=== PATIENT | female | born 1990 | race African-American/Black ===

== ENCOUNTER 2016-12-25 23:49 | Emergency (ER) | payer OTHER ==
--- NOTE | 2016-12-26 02:11 | EDDOCDS ---
Physician Documentation [facility] Name: Sp Liu Age: 26 yrs Sex: Female : 1990 Arrival Date: 12/25/2016 Time: 23:49 Bed Triage 3 Private MD: Tra BAIRES Disposition: 12/26/16 01:51 Discharged to Home/Self Care. Impression: Otalgia, left ear. - Condition is Stable. - Discharge Instructions: Earache. - Prescriptions for Ibuprofen 600 mg Oral Tablet - take 1 tablet by ORAL route every 6 hours As needed take with food; 30 tablet. - Medication Reconciliation, Local Pharmacy Hours form. - Follow up: Jeffrey Giron; When: Call to arrange an appointment; Reason: Further diagnostic work-up, Recheck today's complaints. Follow up: Tra Fitzgerald [facility]; When: Call to arrange an appointment; Reason: to obtain referral. - Problem is an ongoing problem. - Symptoms are unchanged. Historical: - Allergies: no known allergies; - Home Meds: 1. Flonase 50 mcg/actuation Nasal spsn 1 spray once daily 2. naproxen 250 mg Oral tab 1 tab every 6 hours - PMHx: none; - PSHx: bunionectomy; - Social history: Smoking status: Patient states was never smoker of tobacco. No barriers to communication noted, The patient speaks fluent Jamaican, Speaks appropriately for age. - Family history: Not pertinent. - : The pt / caregiver states he / she is not on anticoagulants. Home medication list is obtained from the patient. - Exposure Risk Screening:: None identified. 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 2 in. (157.48 cm) (R); Pain 6/10; 12/26 02:08 BP 122 / 74; Pulse 82; Resp 16; Temp 97.2; Pulse Ox 99% on R/A; Pain 0/10; [facility] 12/25 23:51 Body Mass Index 23.23 (57.61 kg, 157.48 cm) gr2 MDM: 01:46 Financial registration complete. gjb 02:08 [facility] Payment Agreement was scanned into [employer] and attached to record. tommy Signatures: Osei Roper PA-C PA-C ar2 Strong, Shannon RN RN sls1 Cristina Carvalho The chart was reviewed and I authenticate all verbal orders and agree with the evaluation and treatment provided.Attachments: 02:08 [facility] Payment Agreement gjb MTDD
--- NOTE | 2016-12-26 02:11 | EDDOCDS ---
Nurse's Notes [facility] Name: Sp Liu Age: 26 yrs Sex: Female : 1990 Arrival Date: 12/25/2016 Time: 23:49 Bed Triage 3 Private MD: UTTra ROY Diagnosis: Otalgia, left ear Presentation: 12/26 00:07 Presenting complaint: Patient states: left ear pain for 6 months, states has been seen [facility] multiple times and given nasal spray and naproxen with no relief. Adult Sepsis Screening: The patient does not have new or worsening altered mentation. Patient's respiratory rate is less than 22. Systolic blood pressure is greater than 100. Patient has a qSOFA score of 0- Negative Sepsis Screen. Suicide/Homicide risk assessment- the patient denies having any suicidal and/or homicidal ideations and does not present with any other emotional, behavioral or mental health complaints. 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 Transition of care: patient was not received from another setting of care. 00:07 Acuity: FAYE Level 5 [facility] 00:07 Method Of Arrival: Walkin/Carried/Asstd [facility] Triage Assessment: 00:09 General: Appears in no apparent distress, Behavior is appropriate for age, cooperative. sls1 Pain: Location: left ear Pain currently is 10 out of 10 on a pain scale. Pt Declines HIV testing. Neurological: No deficits noted. EENT: Reports pain in left ear. Derm: No deficits noted. 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 Flonase 50 mcg/actuation Nasal spsn 1 spray once daily 2. naproxen 250 mg Oral tab 1 tab every 6 hours - PMHx: none; - PSHx: bunionectomy; - Social history: Smoking status: Patient states was never smoker of tobacco. No barriers to communication noted, The patient speaks fluent Armenian, Speaks appropriately for age. - Family history: Not pertinent. - : The pt / caregiver states he / she is not on anticoagulants. Home medication list is obtained from the patient. - Exposure Risk Screening:: None identified. Screenin:08 Screening information is obtained from the patient. Fall risk: No risks identified. [facility] Assistance ADL's: requires no assistance with activities of daily living. Abuse/DV Screen: The patient / caregiver reports he/she is: not in a situation that causes fear, pain or injury. Nutritional screening: No deficits noted. Advance Directives: Further advance directive information is declined. home support is adequate. Assessment: 02:08 General: Appears in no apparent distress, Behavior is appropriate for age, cooperative, sls1 Discharge instructions reviewed with pt including medication use and follow up care, verbalizes understanding of all instructions. Pain: Denies pain. Neurological: Level of Consciousness is awake, alert. Respiratory: No deficits noted. Derm: No deficits noted. Vital Signs: 12/25 23:51 BP 143 / 80; Pulse 87; Resp 18 S; Temp 98.3(O); Pulse Ox 100% on R/A; Weight 57.61 kg gr2 (R); Height 5 ft. 2 in. (157.48 cm) (R); Pain 6/10; 12/26 02:08 BP 122 / 74; Pulse 82; Resp 16; Temp 97.2; Pulse Ox 99% on R/A; Pain 0/10; sls1 12/25 23:51 Body Mass Index 23.23 (57.61 kg, 157.48 cm) gr2 Vitals: 12/25 23:51 Log In Time: December 25, 2016 at 23:51. gr2 ED Course: 23:50 Patient visited by Gamal White. gr2 23:50 Patient moved to Waiting gr2 23:51 [facility], [place] is Private Physician. gr2 23:52 Patient visited by Gamal White. gr2 23:53 Patient moved to Pre RCE gr2 12/26 00:08 Triage Initiated sls1 00:10 Patient moved to MTA Wait sls1 00:55 Patient moved to Waiting alok 01:17 Patient moved to Triage 3 sls1 01:44 [facility]oper [facility]C [facility]. ar2 01:44 Ilir Marshall DO is Attending Physician. ar2 01:44 Patient visited by Osei Roper PA-C. ar2 01:50 Jeffrey Giron is Referral Physician. ar2 01:51 Tra Fitzgerald [facility] is Referral Physician. ar2 02:08 [facility] Payment Agreement was scanned into [employer] and attached to record. gjb 02:08 The patient / caregiver is instructed regarding the plan of care and ED course. Patient sls1 has correct armband on for positive identification. Placed in gown. 02:08 No IV's were initiated during this patient's visit. No procedures done that require sls1 assistance. Order Results: There are currently no results for this order. Outcome: 01:51 Discharge ordered by Provider. ar2 02:08 Discharge Assessment: Patient awake, alert and oriented x 3. No cognitive and/or sls1 functional deficits noted. Patient verbalized understanding of disposition instructions. patient administered narcotics - no. The following High Risk Discharge criteria are identified: None. Discharged to home ambulatory. Condition: stable. Discharge instructions given to patient, Instructed on discharge instructions, follow up and referral plans. medication usage, Demonstrated understanding of instructions, medications, Pt was receptive of discharge instructions/ teaching. No special radiology studies were completed. Property sent home with patient. 02:10 Patient left the ED. [facility] Signatures: Jennie Pichardo RN RN Osei Spear, PA-C PA-C ar2 Shraddha Cheng RN RN sls1 Gamal White 2 Cristina Carvalhob MODE
--- NOTE | 2016-12-28 03:11 | EDDOCDS ---
Nurse's Notes [facility] Name: pS Liu Age: 26 yrs Sex: Female : 1990 Arrival Date: 12/25/2016 Time: 23:49 Bed Triage 3 Private MD: DETra ROY Diagnosis: Otalgia, left ear Presentation: 12/26 00:07 Presenting complaint: Patient states: left ear pain for 6 months, states has been seen [facility] multiple times and given nasal spray and naproxen with no relief. Adult Sepsis Screening: The patient does not have new or worsening altered mentation. Patient's respiratory rate is less than 22. Systolic blood pressure is greater than 100. Patient has a qSOFA score of 0- Negative Sepsis Screen. Suicide/Homicide risk assessment- the patient denies having any suicidal and/or homicidal ideations and does not present with any other emotional, behavioral or mental health complaints. 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 Transition of care: patient was not received from another setting of care. 00:07 Acuity: FAYE Level 5 [facility] 00:07 Method Of Arrival: Walkin/Carried/Asstd [facility] Triage Assessment: 00:09 General: Appears in no apparent distress, Behavior is appropriate for age, cooperative. sls1 Pain: Location: left ear Pain currently is 10 out of 10 on a pain scale. Pt Declines HIV testing. Neurological: No deficits noted. EENT: Reports pain in left ear. Derm: No deficits noted. 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 Flonase 50 mcg/actuation Nasal spsn 1 spray once daily 2. naproxen 250 mg Oral tab 1 tab every 6 hours - PMHx: none; - PSHx: bunionectomy; - Social history: Smoking status: Patient states was never smoker of tobacco. No barriers to communication noted, The patient speaks fluent Urdu, Speaks appropriately for age. - Family history: Not pertinent. - : The pt / caregiver states he / she is not on anticoagulants. Home medication list is obtained from the patient. - Exposure Risk Screening:: None identified. Screenin:08 Screening information is obtained from the patient. Fall risk: No risks identified. [facility] Assistance ADL's: requires no assistance with activities of daily living. Abuse/DV Screen: The patient / caregiver reports he/she is: not in a situation that causes fear, pain or injury. Nutritional screening: No deficits noted. Advance Directives: Further advance directive information is declined. home support is adequate. Assessment: 02:08 General: Appears in no apparent distress, Behavior is appropriate for age, cooperative, sls1 Discharge instructions reviewed with pt including medication use and follow up care, verbalizes understanding of all instructions. Pain: Denies pain. Neurological: Level of Consciousness is awake, alert. Respiratory: No deficits noted. Derm: No deficits noted. Vital Signs: 12/25 23:51 BP 143 / 80; Pulse 87; Resp 18 S; Temp 98.3(O); Pulse Ox 100% on R/A; Weight 57.61 kg gr2 (R); Height 5 ft. 2 in. (157.48 cm) (R); Pain 6/10; 12/26 02:08 BP 122 / 74; Pulse 82; Resp 16; Temp 97.2; Pulse Ox 99% on R/A; Pain 0/10; sls1 12/25 23:51 Body Mass Index 23.23 (57.61 kg, 157.48 cm) gr2 Vitals: 12/25 23:51 Log In Time: December 25, 2016 at 23:51. gr2 ED Course: 23:50 Patient visited by Gamal White. gr2 23:50 Patient moved to Waiting gr2 23:51 [facility], [place] is Private Physician. gr2 23:52 Patient visited by Gamal White. gr2 23:53 Patient moved to Pre RCE gr2 12/26 00:08 Triage Initiated sls1 00:10 Patient moved to MTA Wait sls1 00:55 Patient moved to Waiting alok 01:17 Patient moved to Triage 3 sls1 01:44 [facility]. ar2 01:44 Ilir Marshall DO is Attending Physician. ar2 01:44 Patient visited by Osei Roper PA-C. ar2 01:50 Jeffrey Giron is Referral Physician. ar2 01:51 Tra Fitzgerald [facility] is Referral Physician. ar2 02:08 [facility] Payment Agreement was scanned into [employer] and attached to record. gjb 02:08 The patient / caregiver is instructed regarding the plan of care and ED course. Patient sls1 has correct armband on for positive identification. Placed in gown. 02:08 No IV's were initiated during this patient's visit. No procedures done that require sls1 assistance. 12:25 T-Sheet-- Draft Copy was scanned into [employer] and attached to record. gb Order Results: There are currently no results for this order. Outcome: 01:51 Discharge ordered by Provider. ar2 02:08 Discharge Assessment: Patient awake, alert and oriented x 3. No cognitive and/or sls1 functional deficits noted. Patient verbalized understanding of disposition instructions. patient administered narcotics - no. The following High Risk Discharge criteria are identified: None. Discharged to home ambulatory. Condition: stable. Discharge instructions given to patient, Instructed on discharge instructions, follow up and referral plans. medication usage, Demonstrated understanding of instructions, medications, Pt was receptive of discharge instructions/ teaching. No special radiology studies were completed. Property sent home with patient. 02:10 Patient left the ED. [facility] Signatures: Jennie Pichardo, RN RN Tanisha Hernandes, Reg Reg Osei Guallpa, PA-C PA-C ar2 Shraddha Cheng RN RN sls1 Gamal White gr2 Cristina Carvalho [facility] Chart Complete [facility]
--- NOTE | 2016-12-28 03:11 | EDDOCDS ---
Physician Documentation [facility] Name: Sp Liu Age: 26 yrs Sex: Female : 1990 Arrival Date: 12/25/2016 Time: 23:49 Bed Triage 3 Private MD: Tra BAIRES Disposition: 12/26/16 01:51 Discharged to Home/Self Care. Impression: Otalgia, left ear. - Condition is Stable. - Discharge Instructions: Earache. - Prescriptions for Ibuprofen 600 mg Oral Tablet - take 1 tablet by ORAL route every 6 hours As needed take with food; 30 tablet. - Medication Reconciliation, Local Pharmacy Hours form. - Follow up: Jeffrey Giron; When: Call to arrange an appointment; Reason: Further diagnostic work-up, Recheck today's complaints. Follow up: Tra Fitzgerald [facility]; When: Call to arrange an appointment; Reason: to obtain referral. - Problem is an ongoing problem. - Symptoms are unchanged. Historical: - Allergies: no known allergies; - Home Meds: 1. Flonase 50 mcg/actuation Nasal spsn 1 spray once daily 2. naproxen 250 mg Oral tab 1 tab every 6 hours - PMHx: none; - PSHx: bunionectomy; - Social history: Smoking status: Patient states was never smoker of tobacco. No barriers to communication noted, The patient speaks fluent Malaysian, Speaks appropriately for age. - Family history: Not pertinent. - : The pt / caregiver states he / she is not on anticoagulants. Home medication list is obtained from the patient. - Exposure Risk Screening:: None identified. 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 2 in. (157.48 cm) (R); Pain 6/10; 12/26 02:08 BP 122 / 74; Pulse 82; Resp 16; Temp 97.2; Pulse Ox 99% on R/A; Pain 0/10; [facility] 12/25 23:51 Body Mass Index 23.23 (57.61 kg, 157.48 cm) gr2 MDM: 01:46 Financial registration complete. gjb 02:08 [facility] Payment Agreement was scanned into [employer] and attached to record. gjb 12:25 T-Sheet-- Draft Copy was scanned into [employer] and attached to record. gb Signatures: Tanisha Cano, Reg Reg gb Osei Roper, PAAsimC PAMadina arShraddha Dumont RN RN sls1 Cristina Carvalhob The chart was reviewed and I authenticate all verbal orders and agree with the evaluation and treatment provided.Attachments: 02:08 [facility] Payment Agreement gjb 12:25 T-Sheet-- Draft Copy gb Chart Complete MTDD
--- NOTE | 2016-12-28 03:11 | EDDOCDS ---
Physician Documentation [facility] Name: Sp Liu Age: 26 yrs Sex: Female : 1990 Arrival Date: 12/25/2016 Time: 23:49 Bed Triage 3 Private MD: Tra BAIRES Disposition: 12/26/16 01:51 Discharged to Home/Self Care. Impression: Otalgia, left ear. - Condition is Stable. - Discharge Instructions: Earache. - Prescriptions for Ibuprofen 600 mg Oral Tablet - take 1 tablet by ORAL route every 6 hours As needed take with food; 30 tablet. - Medication Reconciliation, Local Pharmacy Hours form. - Follow up: Jeffrey Giron; When: Call to arrange an appointment; Reason: Further diagnostic work-up, Recheck today's complaints. Follow up: Tra Fitzgerald [facility]; When: Call to arrange an appointment; Reason: to obtain referral. - Problem is an ongoing problem. - Symptoms are unchanged. Historical: - Allergies: no known allergies; - Home Meds: 1. Flonase 50 mcg/actuation Nasal spsn 1 spray once daily 2. naproxen 250 mg Oral tab 1 tab every 6 hours - PMHx: none; - PSHx: bunionectomy; - Social history: Smoking status: Patient states was never smoker of tobacco. No barriers to communication noted, The patient speaks fluent Comoran, Speaks appropriately for age. - Family history: Not pertinent. - : The pt / caregiver states he / she is not on anticoagulants. Home medication list is obtained from the patient. - Exposure Risk Screening:: None identified. 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 2 in. (157.48 cm) (R); Pain 6/10; 12/26 02:08 BP 122 / 74; Pulse 82; Resp 16; Temp 97.2; Pulse Ox 99% on R/A; Pain 0/10; [facility] 12/25 23:51 Body Mass Index 23.23 (57.61 kg, 157.48 cm) gr2 MDM: 01:46 Financial registration complete. gjb 02:08 [facility] Payment Agreement was scanned into [employer] and attached to record. gjb 12:25 T-Sheet-- Draft Copy was scanned into [employer] and attached to record. gb Signatures: Tanisha Cano, Reg Reg gb Osei Roper, PAAsimC PAMadina arShraddha Dumont RN RN sls1 Cristina Carvalhob The chart was reviewed and I authenticate all verbal orders and agree with the evaluation and treatment provided.Attachments: 02:08 [facility] Payment Agreement gjb 12:25 T-Sheet-- Draft Copy gb Chart Complete MTDD
--- NOTE | 2016-12-28 13:45 | EDDOCDS ---
Nurse's Notes [facility] Name: Sp Liu Age: 26 yrs Sex: Female : 1990 Arrival Date: 12/25/2016 Time: 23:49 Bed Triage 3 Private MD: MOTra ROY Diagnosis: Otalgia, left ear Presentation: 12/26 00:07 Presenting complaint: Patient states: left ear pain for 6 months, states has been seen [facility] multiple times and given nasal spray and naproxen with no relief. Adult Sepsis Screening: The patient does not have new or worsening altered mentation. Patient's respiratory rate is less than 22. Systolic blood pressure is greater than 100. Patient has a qSOFA score of 0- Negative Sepsis Screen. Suicide/Homicide risk assessment- the patient denies having any suicidal and/or homicidal ideations and does not present with any other emotional, behavioral or mental health complaints. 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 Transition of care: patient was not received from another setting of care. 00:07 Acuity: FAYE Level 5 [facility] 00:07 Method Of Arrival: Walkin/Carried/Asstd [facility] Triage Assessment: 00:09 General: Appears in no apparent distress, Behavior is appropriate for age, cooperative. sls1 Pain: Location: left ear Pain currently is 10 out of 10 on a pain scale. Pt Declines HIV testing. Neurological: No deficits noted. EENT: Reports pain in left ear. Derm: No deficits noted. 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 Flonase 50 mcg/actuation Nasal spsn 1 spray once daily 2. naproxen 250 mg Oral tab 1 tab every 6 hours - PMHx: none; - PSHx: bunionectomy; - Social history: Smoking status: Patient states was never smoker of tobacco. No barriers to communication noted, The patient speaks fluent Greenlandic, Speaks appropriately for age. - Family history: Not pertinent. - : The pt / caregiver states he / she is not on anticoagulants. Home medication list is obtained from the patient. - Exposure Risk Screening:: None identified. Screenin:08 Screening information is obtained from the patient. Fall risk: No risks identified. [facility] Assistance ADL's: requires no assistance with activities of daily living. Abuse/DV Screen: The patient / caregiver reports he/she is: not in a situation that causes fear, pain or injury. Nutritional screening: No deficits noted. Advance Directives: Further advance directive information is declined. home support is adequate. Assessment: 02:08 General: Appears in no apparent distress, Behavior is appropriate for age, cooperative, sls1 Discharge instructions reviewed with pt including medication use and follow up care, verbalizes understanding of all instructions. Pain: Denies pain. Neurological: Level of Consciousness is awake, alert. Respiratory: No deficits noted. Derm: No deficits noted. Vital Signs: 12/25 23:51 BP 143 / 80; Pulse 87; Resp 18 S; Temp 98.3(O); Pulse Ox 100% on R/A; Weight 57.61 kg gr2 (R); Height 5 ft. 2 in. (157.48 cm) (R); Pain 6/10; 12/26 02:08 BP 122 / 74; Pulse 82; Resp 16; Temp 97.2; Pulse Ox 99% on R/A; Pain 0/10; sls1 12/25 23:51 Body Mass Index 23.23 (57.61 kg, 157.48 cm) gr2 Vitals: 12/25 23:51 Log In Time: December 25, 2016 at 23:51. gr2 ED Course: 23:50 Patient visited by Gamal White. gr2 23:50 Patient moved to Waiting gr2 23:51 [facility] [place] is Private Physician. gr2 23:52 Patient visited by Gamal White. gr2 23:53 Patient moved to Pre RCE gr2 12/26 00:08 Triage Initiated sls1 00:10 Patient moved to MTA Wait sls1 00:55 Patient moved to Waiting alok 01:17 Patient moved to Triage 3 sls1 01:44 [facility] ar2 01:44 Ilir Marshall DO is Attending Physician. ar2 01:44 Patient visited by Osei Roper PA-C. ar2 01:50 Jeffrey Giron is Referral Physician. ar2 01:51 Tra Fitzgerald [facility] is Referral Physician. ar2 02:08 [facility] Payment Agreement was scanned into [employer] and attached to record. gjb 02:08 The patient / caregiver is instructed regarding the plan of care and ED course. Patient sls1 has correct armband on for positive identification. Placed in gown. 02:08 No IV's were initiated during this patient's visit. No procedures done that require sls1 assistance. 12:25 T-Sheet-- Draft Copy was scanned into [employer] and attached to record. gb Order Results: There are currently no results for this order. Outcome: 01:51 Discharge ordered by Provider. ar2 02:08 Discharge Assessment: Patient awake, alert and oriented x 3. No cognitive and/or sls1 functional deficits noted. Patient verbalized understanding of disposition instructions. patient administered narcotics - no. The following High Risk Discharge criteria are identified: None. Discharged to home ambulatory. Condition: stable. Discharge instructions given to patient, Instructed on discharge instructions, follow up and referral plans. medication usage, Demonstrated understanding of instructions, medications, Pt was receptive of discharge instructions/ teaching. No special radiology studies were completed. Property sent home with patient. 02:10 Patient left the ED. [facility] Signatures: Jennie Pichardo, RN RN Tanisha Hernandes, Reg Reg Osei Guallpa, PA-C PA-C ar2 Shraddha Cheng RN RN sls1 Gamal White gr2 Cristina Carvalho [facility] Chart [facility]
--- NOTE | 2016-12-28 13:45 | EDDOCDS ---
Physician Documentation [facility] Name: Sp Liu Age: 26 yrs Sex: Female : 1990 Arrival Date: 12/25/2016 Time: 23:49 Bed Triage 3 Private MD: Tra BAIRES Disposition: 12/26/16 01:51 Discharged to Home/Self Care. Impression: Otalgia, left ear. - Condition is Stable. - Discharge Instructions: Earache. - Prescriptions for Ibuprofen 600 mg Oral Tablet - take 1 tablet by ORAL route every 6 hours As needed take with food; 30 tablet. - Medication Reconciliation, Local Pharmacy Hours form. - Follow up: Jeffrey Giron; When: Call to arrange an appointment; Reason: Further diagnostic work-up, Recheck today's complaints. Follow up: Tra Fitzgerald [facility]; When: Call to arrange an appointment; Reason: to obtain referral. - Problem is an ongoing problem. - Symptoms are unchanged. Historical: - Allergies: no known allergies; - Home Meds: 1. Flonase 50 mcg/actuation Nasal spsn 1 spray once daily 2. naproxen 250 mg Oral tab 1 tab every 6 hours - PMHx: none; - PSHx: bunionectomy; - Social history: Smoking status: Patient states was never smoker of tobacco. No barriers to communication noted, The patient speaks fluent Malaysian, Speaks appropriately for age. - Family history: Not pertinent. - : The pt / caregiver states he / she is not on anticoagulants. Home medication list is obtained from the patient. - Exposure Risk Screening:: None identified. 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 2 in. (157.48 cm) (R); Pain 6/10; 12/26 02:08 BP 122 / 74; Pulse 82; Resp 16; Temp 97.2; Pulse Ox 99% on R/A; Pain 0/10; [facility] 12/25 23:51 Body Mass Index 23.23 (57.61 kg, 157.48 cm) gr2 MDM: 01:46 Financial registration complete. gjb 02:08 [facility] Payment Agreement was scanned into [employer] and attached to record. gjb 12:25 T-Sheet-- Draft Copy was scanned into [employer] and attached to record. gb Signatures: Tanisha Cano, Reg Reg gb Osei Roper, PA-C PA-C arShraddha Dumont RN RN sls1 Cristina Carvalho The chart was reviewed and I authenticate all verbal orders and agree with the evaluation and treatment provided.Attachments: 02:08 [facility] Payment Agreement gjb Chart Complete MTDD
--- NOTE | 2016-12-28 13:45 | EDDOCDS ---
Physician Documentation [facility] Name: Sp Liu Age: 26 yrs Sex: Female : 1990 Arrival Date: 12/25/2016 Time: 23:49 Bed Triage 3 Private MD: Tra BAIRES Disposition: 12/26/16 01:51 Discharged to Home/Self Care. Impression: Otalgia, left ear. - Condition is Stable. - Discharge Instructions: Earache. - Prescriptions for Ibuprofen 600 mg Oral Tablet - take 1 tablet by ORAL route every 6 hours As needed take with food; 30 tablet. - Medication Reconciliation, Local Pharmacy Hours form. - Follow up: Jeffrey Giron; When: Call to arrange an appointment; Reason: Further diagnostic work-up, Recheck today's complaints. Follow up: Tra Fitzgerald [facility]; When: Call to arrange an appointment; Reason: to obtain referral. - Problem is an ongoing problem. - Symptoms are unchanged. Historical: - Allergies: no known allergies; - Home Meds: 1. Flonase 50 mcg/actuation Nasal spsn 1 spray once daily 2. naproxen 250 mg Oral tab 1 tab every 6 hours - PMHx: none; - PSHx: bunionectomy; - Social history: Smoking status: Patient states was never smoker of tobacco. No barriers to communication noted, The patient speaks fluent Cuban, Speaks appropriately for age. - Family history: Not pertinent. - : The pt / caregiver states he / she is not on anticoagulants. Home medication list is obtained from the patient. - Exposure Risk Screening:: None identified. 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 2 in. (157.48 cm) (R); Pain 6/10; 12/26 02:08 BP 122 / 74; Pulse 82; Resp 16; Temp 97.2; Pulse Ox 99% on R/A; Pain 0/10; [facility] 12/25 23:51 Body Mass Index 23.23 (57.61 kg, 157.48 cm) gr2 MDM: 01:46 Financial registration complete. gjb 02:08 [facility] Payment Agreement was scanned into [employer] and attached to record. gjb 12:25 T-Sheet-- Draft Copy was scanned into [employer] and attached to record. gb Signatures: Tanisha Cano, Reg Reg gb Osei Roper, PA-C PA-C arShraddha Dumont RN RN sls1 Cristina Carvalho The chart was reviewed and I authenticate all verbal orders and agree with the evaluation and treatment provided.Attachments: 02:08 [facility] Payment Agreement gjb Chart Complete MTDD
== END 2016-12-26 02:10 | disposition home or self-care (01) ==
LOC: M ED 23:49
DX: H92.02 Otalgia, left ear (principal); Z79.899 Other long term (current) drug therapy

== ENCOUNTER 2017-03-02 22:40 | Emergency (ER) | payer OTHER ==
[~2017-03-02] VITALS: Ht 157.5 cm; Wt 57.6 kg
[2017-03-03] MEDS ORDERED: KETOROLAC 60 MG/2 ML VIAL (J1885) IM ONE (03:45)
[2017-03-03 04:12] VITALS: BP 120/70
== END 2017-03-03 03:01 | disposition home or self-care (01) ==
LOC: M ED 03-03 00:21
DX: R51 Headache (principal)
CPT/HCPCS: 96372; 99281; J1885

== ENCOUNTER → 2017-03-30 | Outpatient (CLI) | payer OTHER ==
--- NOTE | 2017-03-30 09:26 | REP ---
CT IACs WITHOUT CONTRAST: HISTORY: Left otalgia. The internal auditory canals, cochlea, vestibules and semicircular canals are normal in appearance. The ossicles are normal in configuration and position. The scutum and tegmen are intact. The middle ear cavities and mastoid air cells are clear. The visualized sinuses are clear. The nasopharynx is normal in appearance. 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 IMPRESSION: Normal CT IACs. Signed by Mateus Emerson MD 03/30/2017 09:40 A
== END ==
LOC: M RAD 07:24
PROVIDERS: ATTEND Physician Assistant Medical
DX: H92.02 Otalgia, left ear (principal)